=== PATIENT | male | born 1975 | race Caucasian/White ===

== ENCOUNTER 2018-04-30 09:53 | Emergency (ER) | payer OTHER ==
--- NOTE | 2018-04-30 10:02 | EDPHY ---
H & P Stated Complaint: [facility] fall Time Seen by Provider: 04/30/18 10:01 - Personal History Current Tetanus/Diphtheria Vaccine: Yes - Medical/Surgical History Hx Asthma: No Hx Chronic Respiratory Disease: No Hx Diabetes: No Hx Cardiac Disease: No Hx Renal Disease: No Hx Cirrhosis: No Hx Alcoholism: No Other PMH: Denies - Social History Smoking Status: Never smoked Constitutional: Initial Vital Signs Temperature (C) 36.6 C 04/30/18 09:56 Heart Rate 71 04/30/18 09:56 Respiratory Rate 22 H 04/30/18 09:56 Blood Pressure 127/76 H 04/30/18 09:56 O2 Sat (%) 96 04/30/18 09:56 O2 Delivery Mode Room Air Allergies/Adverse Reactions: No Known Allergies Allergy (Unverified 04/30/18 09:59) Home Medications: Medication Instructions Recorded FISH OIL CONC 1,000 MG SOFTGEL 08/12/09 Ibuprofen [Motrin] 800 mg PO Q8 #20 tab 04/30/18 oxyCODONE IR [Oxycodone Ir (*)] 5 - 10 mg PO Q6 PRN #25 tab 04/30/18 Medical Decision Making ED Course/Re-evaluation: CHIEF COMPLAINT: Fell one week ago, right-sided rib pain HISTORY OF PRESENT ILLNESS: The patient is a 42 y/o male complaining of a fall and subsequent right rib pain. Around one week ago he was half way down a flight of carpeted stairs when he tripped and fell down the remaining stairs. He landed on a kids play-chair that was at the landing of the stairs. He denies hitting his head or losing consciousness. He immediately had right-sided rib pain and felt mildly short of breath. He then flew home to [place] from [place], but the pain did not improve. Today he went to an urgent care and had a chest x-ray which revealed 2- 3 fractured right-sided ribs and a pneumothorax. He was told to present to the emergency department for these imaging findings. He is currently having 4/10 rib pain when he takes a deep breath or coughs. No headache, neck pain, chest pain, abdominal pain, urinary or bowel complaints, numbness, paresthesias, fevers. REVIEW OF SYSTEMS: A comprehensive 10 system review of systems is otherwise negative aside from elements mentioned in the history of present illness and medical decision making. PHYSICAL EXAM: HR, BP, O2 Sat, RR. Temp noted General Appearance: Alert, well hydrated, appropriate, and non-toxic appearing. Head: Atraumatic without scalp tenderness or obvious injury Eyes: Pupils equal, round, reactive to light and accommodation, EOMI, no trauma , no injection. Ears: Clear bilaterally, no perforation, normal landmarks Nose: Atraumatic, no rhinorrhea, clear. Throat: There is no erythema or exudates, no lesions, normal tonsils, mucus membranes moist. Neck: Supple, 2+ carotid upstroke, nontender, no lymphadenopathy. Respiratory: No retractions, no distress, no wheezes, and no accessory muscle use. Lungs are clear to auscultation bilaterally. Tenderness to palpation of right-sided ribs. Cardiovascular: Regular rate and rhythm, no murmurs, rubs, or gallops. Bilateral carotid, radial, dorsalis pedis, and posterior tibial pulses intact. Good capillary refill all extremities. Gastrointestinal: Abdomen is soft, nontender, non-distended, no masses, no rebound, no guarding, no peritoneal signs. Musculoskeletal: Normal active ROM of all extremities, atraumatic. Neurological: Alert, appropriate, and interactive. The patient has normal DTRs and non-focal cranial nerves, motor, sensory, and cerebellar exam. Skin: No rashes, good turgor, no nodules on palpation. Past medical history: Denies Past surgical history: Denies Family history: Denies Social history: and children at bedside, employed as a nurse at [employer], lives in [place] DIAGNOSTICS/PROCEDURES/CRITICAL CARE TIME: Not indicated as imaging was performed at the urgent care several hours ago. DIFFERENTIAL DIAGNOSIS: The differential diagnosis for the patient's trauma included but was not limited to spinal injury, intra-abdominal injury, and intra-thoracic injury. MEDICAL DECISION MAKING: The patient is a 42 y/o male presenting after a fall and subsequent right rib pain, onset 1 week ago. He was seen at an urgent care today and diagnosed with 2 /3 fractured ribs and a right-sided pneumothorax. On exam he has some tenderness to palpation of his right ribs. I discussed plan for a probable chest tube, which the patient is comfortable with. 1014: I consulted with Dr. Martin, general surgeon, regarding this patient. She will come down to the emergency department to consult on this patient. 1020: Reassessed patient and discussed plan for consult with Dr. Martin. I will also have the patient use an incentive spirometer. 1039: I consulted with Dr. Martin who reports that this patient is safe to be discharged home. She will follow up with him on Tuesday in her office. This patient's pneumo could have enlarged since he flew home recently. 1040: Reassessed patient and discussed plan for discharge and follow up. I have prescribed him Ibuprofen and OxyIR for the pain. Return precautions provided; patient is comfortable with this plan. Departure - Departure Disposition: Home, Routine, Self-Care Clinical Impression: Fractured rib Qualifiers: Encounter type: initial encounter Rib fracture type: multiple ribs Fracture type: closed Laterality: right Qualified Code(s): S22.41XA - Multiple fractures of ribs, right side, initial encounter for closed fracture Pneumothorax Qualifiers: Pneumothorax type: traumatic Encounter type: initial encounter Qualified Code(s ): S27.0XXA - Traumatic pneumothorax, initial encounter Condition: Fair Instructions: Traumatic Pneumothorax (ED), How to Use an Incentive Spirometer ( ED), Rib Fracture (ED) Additional Instructions: 1. Followup with Dr. Martin on Tuesday for reevaluation. 2. Use incentive spirometer as directed several times daily. 3. Return to the emergency department for fever, worsening pain, shortness of breath or difficulty breathing, abdominal pain, blood in urine or other concerns. 4. Take Ibuprofen as prescribed. Take 800mg three times a day. You can take up to 800mg four times a day. 5. Take OxyIR as prescribed for severe pain. Referrals: Leandra Martin MD [Medical Doctor] - As per Instructions (Tuesday 11:45) Prescriptions: Ibuprofen [Motrin] 800 mg PO Q8 #20 tab oxyCODONE IR [Oxycodone Ir (*)] 5 - 10 mg PO Q6 PRN #25 tab PRN Reason: Pain, Severe Report Scribed for: Brock Price Report Scribed by: Sarah Maher Date of Report: 04/30/18 Time of Report: 10:05
[2018-04-30 10:46] VITALS: BP 137/88
--- NOTE | 2018-04-30 13:10 | GCON ---
ER CONSULTATION DATE OF CONSULTATION: 04/30/2018 CHIEF COMPLAINT: Right pneumothorax. HISTORY OF PRESENT ILLNESS: The patient is a 42-year-old man who was traveling in [place] and fell down some stairs and landed on a small child's chair. He had fairly severe pain after but was able to breathe. His pain was controlled with Tylenol and ibuprofen and gradually improved on his vacation. He did not lose consciousness. He declined seeking care in [place]. He flew home to [place] but the pain did not improve, so a chest x-ray was performed which showed right-sided rib fractures and a pneumothorax. PAST MEDICAL HISTORY: None. PAST SURGICAL HISTORY: None. SOCIAL HISTORY: He is an ICU nurse at [employer]. He is a nonsmoker. He is with 2 children. REVIEW OF SYSTEMS: Ten-point review of systems is negative except per HPI. PHYSICAL EXAMINATION: VITAL SIGNS: Reviewed. GENERAL: Well-nourished, well- groomed man at visit with and 2 children. HEENT: Normocephalic. No gross hearing deficits. Mucous membranes moist. Pupils equal and round. No scleral icterus. LUNGS: Clear to auscultation bilaterally, although decreased on right compared to left. No increased work of breathing. CHEST: He has tenderness over the right ribs. CARDIAC: Regular rate. No peripheral edema. MUSCULOSKELETAL: Normal range of motion. Normal nails. NEURO: Grossly intact. SKIN: No rashes. PSYCH: Mood and affect normal. RESULTS REVIEWED: I personally reviewed the chest x-ray and also showed this to the patient. IMPRESSION AND PLAN: 42-year-old status post fall one week ago with a 20% pneumothorax. I am unclear if the pneumothorax has been improving or it possibly could have gotten worse with his flight from [place]. We discussed the option of placing a chest tube today or repeating a chest x-ray on Tuesday. Since he is hemodynamically stable and maintaining oxygen saturations, I favor repeat chest x-ray on Tuesday. If it is the same or worse, then we will place a chest tube. If it is improving, then I think he will continue to resolve. We will give him an incentive spirometer to take home. He will continue cough deep breathing. Signs such as increased shortness of breath, increasing chest pain, or other concerns were relayed to him and he will call me if he has any questions or concerns. I provided him with my cellphone. Chest x-ray has been placed through [facility] and he will see me at 11: 45 a.m. with a chest x-ray prior. /[id number]/MODL MTDD
== END 2018-04-30 10:47 | disposition home or self-care (01) ==
DX: S22.41XA Multiple fractures of ribs, right side, initial encounter for closed fracture (principal); S27.0XXA Traumatic pneumothorax, initial encounter; W10.8XXA Fall (on) (from) other stairs and steps, initial encounter; Y93.9 Activity, unspecified; Y92.9 Unspecified place or not applicable

== ENCOUNTER → 2018-05-02 | Outpatient (CLI) | payer OTHER | LOC: FIMAGING 11:08 | PROVIDERS: ATTEND Surgery | DX: J93.9 Pneumothorax, unspecified (principal) ==